=== PATIENT | female | born 2000 | race Caucasian/White ===

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

== ENCOUNTER → 2024-05-15 | Outpatient (CLI) | payer MEDICAID, SELFPAY | END | disposition home or self-care (01) | LOC: LABSPEC 12:24 | PROVIDERS: PCP Pediatrics; Referring Provider Physician Assistant; Visit Provider Physician Assistant | DX: R30.0 Dysuria (principal) | CPT/HCPCS: 87086; 87088 ==

== ENCOUNTER 2024-09-02 09:27 | Emergency (ER) | payer OTHER, MEDICAID, SELFPAY ==
[2024-09-02 09:28] VITALS: BP 120/80; PULSE 97; RESP 14; TEMP 36.3; O2SAT 100; BMI 21.1
--- NOTE | 2024-09-02 09:44 | EKG12_ITS ---
Test Reason : cp Blood Pressure : */* mmHG Vent. Rate : 82 BPM Atrial Rate : 82 BPM P-R Int : 140 ms QRS Dur : 74 ms QT Int : 376 ms P-R-T Axes : 74 98 70 degrees QTcB Int : 439 ms Normal sinus rhythm with sinus arrhythmia Rightward axis Borderline ECG Confirmed by ASHLEY STEPHEN, ODALYS ([id number]), state editor BASIL GARDNER ([id number]) on 09/04/2024 6:40:03 AM Referred By: Ar Confirmed By: ODALYS RAMIREZ MD
--- NOTE | 2024-09-02 09:45 | EDS_ITS ---
HPI History of Present Illness Chief Complaint: Chest Pain Narrative Narrative: 24-year-old female past medical history of being on control and takes spironolactone for acne, presents with right-sided chest and shoulder pain that she has had since evening, approximately 2 days ago. She states that she was getting out of the shower and noticed anterior right shoulder pain. More in her chest as well. No recent fevers or chills, no cough. She is also experiencing right trapezial pain as well. No nausea or vomiting, no abdominal pain, no diaphoresis. She states that the pain is relatively constant, but can get worse and become sharp and stabbing. She went to bed night, and awoke, and throughout her day, she started experiencing different pains in her right shoulder. She denies any neck pain. No DVT or PE risk factors. She presents today, with her mother because she was unable to work today secondary to increasing right posterior and anterior shoulder pain/right chest pain. [facility] Medical History Bee sting Home Medications ?Medication ?Instructions ?Recorded ?Last Taken ?Type adapalene 0.1 %-benzoyl peroxide 1 applic topical QHS 05/15/24 Unknown History 2.5 % topical gel with pump levonorgestrel-ethinyl estradiol 1 tab PO QDAY 4 Unknown History 0.1 mg-20 mcg tablet (Vienva) spironolactone 50 mg tablet 50 mg PO QDAY 05/15/24 Unk nown History Allergy/AdvReac Type Severity Reaction Status Date / Time No Known Allergies Allergy Verified 09/02/24 09:31 Social History Smoking Status: Never smoker ROS ROS ED ROS Narrative Review of systems positive for right shoulder pain, both anterior and posterior. Positive right chest pain. Constant. Waxes and wanes. No fevers or chills, no nausea or vomiting, no diaphoresis. Denies any leg swelling. No neck pain. EXAM Physical Exam Narrative Exam Narrative: Afebrile. Vital signs noted. Nontoxic-appearing. Cardiovascular examination reveals a regular rate and rhythm. No murmurs, rubs, or gallops appreciated. Lungs are clear to auscultation bilaterally. Abdomen is soft and nontender with no pain in the right upper quadrant, no guarding or rebound. Neck examination shows no vertebral point tenderness or bony step-off. Full range of motion without pain. Neurovascular in tact to right upper extremity. No pain with movement of arms. Questionable pain with movement of torso. Const Vital Signs: 09/02/24 09:28 09/02/24 10:17 Temperature 97.3 F L Temperature Source Temporal Pulse Rate 97 Respiratory Rate 14 Blood Pressure 120/80 Blood Pressure Mean 93 Pulse Ox 100 98 Oxygen Delivery Method Room Air Room Air MDM MDM MDM Narrative Medical decision making narrative: Differential diagnosis includes but not limited to cervical radiculopathy versus musculoskeletal pain versus pneumonia versus pneumothorax. I have low suspicion for gallbladder disease as she has a nontender abdomen. Also the differential diagnosis would be ACS versus pulmonary embolism. However, she is not tachycardic, nor she hypoxic. She is on control pills however so I do not feel that she could be ruled out with the PERC rule. EKG was obtained and interpreted by myself independently as normal sinus rhythm with sinus arrhythmia at [address] changes. No STEMI. I will obtain basic laboratory work, chest x-ray, as well as D-dimer. I feel that she would only require 1 troponin and not serial enzymes as she has had constant pain since evening. I reviewed her laboratory work and she has normal white count of 5.6 with hemoglobin normal at 13.6, platelet count 255 and normal. D-dimer is negative at less than 0.27. I doubt pulmonary embolism. BMP grossly unremarkable, glucose probably elevated at 88. Troponin less than 6. Once again I do not feel she needs serial enzymes. She declined any analgesics here in the emergenc y department. Chest x-ray interpreted by myself independently shows no evidence of pneumonia or pneumothorax. I reviewed the radiology report which confirms my independent interpretation. At this point in time, while I am unsure as to the cause of her chest pain and shoulder pain, it may be more musculoskeletal in nature. I do not feel she requires observation or admission. She was referred to her primary care provider, and return instructions reviewed. She is agreeable to discharge. Disposition is discharged home in stable condition. History & Record Review Discussion w/independent historian: Patient Lab Data Attestation: I reviewed the patient's lab results. Labs: Laboratory Results - last 24 hr 09/02/24 10:05 WBC 5.6 RBC 4.38 Hgb 13.6 Hct 40.1 MCV 91.6 MCH 31.1 MCHC 33.9 RDW Std Deviation 41.1 RDW Coeff of Johnnie 12.1 Plt Count 255 MPV 10.3 Immature Gran % (Auto) 0.400 Neut % (Auto) 66.6 Lymph % (Auto) 21.7 [place] % (Auto) 8.7 Eos % (Auto) 2.1 Baso % (Auto) 0.5 Absolute Neuts (auto) 3.7 Absolute Lymphs (auto) 1.22 Nucleated RBC % 0 D-Dimer Quant (PE/DVT) < 0.27 L Sodium 136 Potassium 4.1 Chloride 103 Carbon Dioxide 22.9 Anion Gap 11 BUN 13 Creatinine 0.79 Estim Creat Clear Calc 104.54 Est GFR (MDRD) Non-Af 109 BUN/Creatinine Ratio 16.3 Glucose 88 Calcium 9.0 Troponin T High Sens < 6 Radiography Chest X-Ray - ED: 1 View, Read by ED Physician, Read by Radiologist and Normal Diagnostic Testing: Clinical Impression(s) from Imaging Studies Chest X-Ray 09/02/24 10:25 IMPRESSION: Negative Chest. Reading Location: [facility] Discharge Plan Triage Chief Complaint: Chest Pain ED Provider: Todd Wilson Dx/Rx/DC Orders Clinical Impression: Chest pain, Right shoulder pain Instructions: ED Chest Pain, Uncertain Cause, ED Pain, Acute, Uncertain Cause, ED Shoulder Pain, Uncertain Cause Prescriptions: No Action adapalene-benzoyl peroxide 0.1-2.5 % gel with pump 1 applic topical QHS levonorgestrel-ethinyl estrad [Vienva] 0.1-20 mg-mcg tablet 1 tab PO QDAY spironolactone 50 mg tablet 50 mg PO QDAY Primary Care Provider: Care Physician,No Primary Referrals: Jose Hunter MD [Med Staff - Active Staff] - 1 Week if not improving NOT,DEFINED [Non-Staff] - Activity Restrictions/Additional Instructions: [id number] medications like Tylenol or ibuprofen as directed for pain. Follow-up with a primary care provider. Return to the emergency department with increased pain, new or worsening symptoms. Print Language: Ecuadorean Disposition Disposition: Home, Self Care
[2024-09-02] MEDS: Aspirin 81 MG TAB.CHEW 324 MG PO (10:13)
[2024-09-02 10:15] LABS: Absolute Lymphocyte Count 1.22 X10^3/uL (0.83-4.51); Absolute Neutrophil Count 3.7 X10^3/uL (2.0-7.7); Basophil# 0.03 X10^3/uL; Basophil% 0.5 % (0-1); Eosinophil# 0.12 X10^3/uL; Eosinophils% 2.1 % (0-5); Hematocrit 40.1 % (37-47); Hemoglobin 13.6 g/dL (12.0-15.0); Lymphocyte # 1.22 X10^3/ul (0.83-4.51); Lymphocyte % 21.7 % (19-41); Mean Corp Hgb Conc 33.9 g/dL (32-36); Mean Corpuscular Hgb 31.1 pg (27.0-32.0); Mean Corpuscular Volume 91.6 fL (81-99); Mean Platelet Vol. 10.3 fl (6.2-12.0); Monocyte# 0.49 X10^3/uL; Monocyte% 8.7 % (0-10); NRBC Flagged by Analyzer 0 % (0-5); Neutrophil # 3.73 X10^3/uL (2.7-7.7); Neutrophil % 66.6 % (47-70); Platelet Count 255 K/mm3 (150-450); RBC Distribution Width CV 12.1 % (11.6-14.6); RBC Distribution Width SD 41.1 fl (35.1-43.9); Red Blood Count 4.38 M/mm3 (4.2-5.4); White Blood Count 5.6 K/mm3 (4.4-11.0)
[2024-09-02 10:17] VITALS: O2SAT 98
--- NOTE | 2024-09-02 10:25 | RAD_ITS ---
PROCEDURE: CHEST 1 VIEW (PORTABLE) 09/02/2024 REASON FOR EXAM: 24-year-old female, chest pain. TECHNIQUE: Frontal view of the chest. COMPARISON: None. FINDINGS: Hardware: None. EKG leads overlie the chest. Heart: The heart size is normal. Lungs: No focal consolidation, pleural effusion or pneumothorax. Bones: The bones are unremarkable. RAD/Chest 1 View (Portable) IMPRESSION: Negative Chest. Reading Location: [id number]
[2024-09-02 11:06] LABS: Anion Gap 11 (5-15); BUN 13 mg/dL (4-19); BUN/Creat Ratio 16.3 RATIO (10-20); Carbon Dioxide 22.9 mmol/L (21.0-32.0); Chloride 103 mmol/L (98-108); Creatinine, Serum 0.79 mg/dL (0.70-1.20); EST Glomerular Filtration Rate 109 (>60); Estimated Creatinine Clearance 104.54 ml/min (50-250); Glucose 88 mg/dL (70-99); Potassium 4.1 mmol/L (3.3-5.1); Sodium Level 136 mmol/L (133-145); Troponin T High Sensitivity < 6 ng/L (<=14)
[2024-09-02 11:11] LABS: D-Dimer Quantitative (DVT/PE) < 0.27 FEU/ug/m (0.27-0.49)
[2024-09-02 11:28] VITALS: BP 120/80; PULSE 85; PULSE 97; RESP 14; RESP 16; TEMP 36.3; O2SAT 97; O2SAT 98
== END 2024-09-02 11:32 | disposition home or self-care (01) ==
PROVIDERS: Emergency Provider Emergency Medicine; Visit Provider Emergency Medicine
DX: R07.9 Chest pain, unspecified (principal); M25.511 Pain in right shoulder
CPT/HCPCS: 71045; 80048; 84484; 85025; 85379; 93005; 99283; A4216

== ENCOUNTER 2024-09-17 20:48 | Emergency (ER) | payer OTHER, MEDICAID, SELFPAY ==
[2024-09-17 20:48] VITALS: BP 129/88; PULSE 110; RESP 18; TEMP 36.6; O2SAT 97; BMI 21.1
--- NOTE | 2024-09-17 20:53 | ED.VIS.BACK ---
HPI History of Present Illness Chief Complaint: Back [facility] Medical History (Updated 09/17/24 @ 20:49 by Tatyana Doshi) Acne Bee sting Home Medications ?Medication ?Instructions ?Recorded ?Last Taken ?Type levonorgestrel-ethinyl estradiol 1 tab PO QDAY 05/15/24 Unknown History 0.1 mg-20 mcg tablet (Vienva) spironolactone 50 mg tablet 50 mg PO QDAY 05/15/24 Unknown History orphenadrine citrate 100 mg 100 mg PO BID PRN back pain #6 tabs 09/17/24 Unknown Rx tablet,extended release prednisone 20 mg tablet 20 mg PO DAILY 5 days #5 TABLETS 09/17/24 Unknown Rx Allergy/AdvReac Type Severity Reaction Status Date / Time No Known Allergies Allergy Verified 09/17/24 20:48 Social History Smoking Status: Never smoker EXAM Physical Exam Const Vital Signs: 09/17/24 20:48 09/17/24 21:40 Temperature 97.8 F 97.8 F Temperature Source Temporal Pulse Rate 110 H 110 H Respiratory Rate 18 18 Blood Pressure 129/88 H 129/88 H Blood Pressure Mean 101 101 Pulse Ox 97 97 MDM MDM MDM Narrative Medical decision making narrative: HISTORY OF PRESENT ILLNESS: Chief complaint: Back pain 24-year-old female presents with severe back pain started 1 and half hours prior to arrival. No she took 2 Aleve at home. Notes no falls. No trauma. No urinary complaints. Notes the pain is located in her right lower back, right buttocks and radiates down the right leg. It is shooting, tingling. No history of similar. Patient denies any saddle anesthesia, urinary retention, bowel or bladder incontinence, lower extremity weakness, fever or IV drug use, no recent spinal manipulation or surgery, no recent urinary catheterization. REVIEW OF SYSTEMS: Pertinent positives: Back pain Pertinent negatives: Dysuria, frequency, urgency, bowel or bladder incontinence PHYSICAL EXAM: Nursing triage notes reviewed, Vital signs reviewed Constitutional: please see mdm HENT: MMM Eyes: Pupils equal round and reactive to light, Extraocular muscles intact Neck: No stridor, no JVD, full neck ROM Lungs: Clear to auscultation, No wheezing or rales. No increased work of breathing, no conversational dyspnea, no accessory muscle use, no nasal flaring. No respiratory distress noted Heart: Regular rate and rhythm, No murmurs, No rubs and No gallops, 2+ distal pulses (radial, femoral, posterior tibial) in all extremities Abdomen: Soft, there is no tenderness, rigidity, rebound or guarding, no obvious peritoneal signs, no palpable pulsatile abdominal masses, no auscultated abdominal bruit : No CVAT Extremities: No edema, positive straight leg raise test on the left Neuro: Intact sensation L1-S1 dermatomal distributions. Intact 5/5 strength in hip flexion (T12-L3). Knee extension (L2-L4). Ankle dorsiflexion (L4-L5). Ankle plantar flexion (S1). Great toe extension (L5). 2+ patellar and Achilles DTRs. Skin: No rash or lesions noted MEDICAL DECISION MAKING: Chief Complaint: please see HPI External records reviewed: Reviewed prior imaging studies Factors affecting care: none Social determinants of health: denies illicit drug use History obtained from others: significant other Consults: none MDM Narrative: Patient was initially tachycardic otherwise afebrile and nontoxic-appearing. Exam without focal abnormalities. Specifically no focal neurologic deficits noted in bilateral lower extremities. She had a positive straight leg raise test on the left. I considered the following differential diagnosis: Musculoskeletal back pain, space-occupying lesion of spine (epidural abscess, cauda equina, conus medullaris), pyelonephritis, nephrolithiasis The patient's history and clinical exam were not consistent pyelonephritis, nephrolithiasis or space-occupying lesion of the spine. I suspect she is suffering for musculoskeletal cause of her back pain specifically I suspect she is from lumbar radiculopathy and/or sciatica. Will give steroids, muscle relaxers, Tylenol ibuprofen instructions for home-going. The patient and/or family, caregivers express understanding. The patient and/or family, caregivers agrees with the plan. Shared decision making: I will have a discussion with the patient and or visitors regarding risk/benefits of further testing or admission. They will be made aware of of the risk/benefits inherent in this decision they will be given the opportunity to voice understanding. Total critical care time today provided was at least 0 minutes. This excludes separately billable procedures. Critical care time (if documented) is secondary to the patient having high probability of clinically significant/life threatening deterioration in the patient's condition which required my urgent intervention. Impression: 1. Acute back pain 2. Lumbar radiculopathy Dispo: Discharge This note was generated with [employer] dictation software. It may contain incorrect words, spelling, and punctuation that were not noted in review of the chart prior to signing. Discharge Plan Triage Chief Complaint: Back ED Provider: Emmanuel Lowry Dx/Rx/DC Orders Instructions: ED Sciatica Prescriptions: New orphenadrine citrate 100 mg tablet extended release 100 mg PO BID PRN (Reason: back pain) Qty: 6 0RF prednisone 20 mg tablet 20 mg PO DAILY 5 Days Qty: 5 0RF No Action levonorgestrel-ethinyl estrad [Vienva] 0.1-20 mg-mcg tablet 1 tab PO QDAY spironolactone 50 mg tablet 50 mg PO QDAY Primary Care Provider: Care Physician,No Primary Referrals: Sunil Bauer MD [Med Staff - Drop Board Worker] - Activity Restrictions/Additional Instructions: Thank you for trusting us with your care today! Your history and physical exam are most consistent with lumbar radiculopathy or sciatica. Please take Tylenol (2 pills, 650 mg), ibuprofen (2 pills, 400 mg) every 6 hours as needed for pain and fever control. Please take prednisone as prescribed. Please take Norflex as needed for additional pain control Please return to the emergency department if your symptoms change or worsen. Specifically develop bowel or bladder incontinence, urinary retention, difficulty feeling or primary, inability move or feel your legs. Please follow with your primary care physician for further outpatient evaluation and management. Print Language: Solomon Islander Disposition Disposition: Home, Self Care Discharge Date/Time: 09/17/24 21:41
[2024-09-17] MEDS: Lidocaine 5% Patch 1 PATCH TOPICAL (21:09)
[2024-09-17] MEDS: Ibuprofen 200 MG Tablet 400 MG PO (21:10)
[2024-09-17] MEDS: oxyCODONE 5 MG Tablet PO (21:11)
[2024-09-17] MEDS: Orphenadrine 100 MG Tablet PO (21:11)
[2024-09-17] MEDS: predniSONE 20 MG Tablet PO (21:11)
[2024-09-17 21:40] VITALS: BP 129/88; PULSE 110; RESP 18; TEMP 36.6; O2SAT 97
== END 2024-09-17 21:41 | disposition home or self-care (01) ==
LOC: ED 21:28
PROVIDERS: Emergency Provider Emergency Medicine; Visit Provider Emergency Medicine
DX: M54.16 Radiculopathy, lumbar region (principal)
CPT/HCPCS: 99283